=== PATIENT | male | born 1995 | race Caucasian/White ===

== ENCOUNTER 2020-04-14 17:45 | Emergency (ER) | payer BC, SELFPAY ==
[2020-04-14] MEDS ORDERED: Morphine 10 MG/ML VIAL ONE (18:43)
[2020-04-14] MEDS ORDERED: Silver Sulfadiazine 50 GM JAR ONE (18:43)
== END 2020-04-14 20:27 | disposition home or self-care (01) ==
LOC: MADERS 17:45
DX: T23.201A Burn of second degree of right hand, unspecified site, initial encounter (principal); T20.10XA Burn of first degree of head, face, and neck, unspecified site, initial encounter; X08.8XXA Exposure to other specified smoke, fire and flames, initial encounter
CPT/HCPCS: 16000; 96372; J2270